=== PATIENT | male | born 1995 | race African-American/Black ===

== ENCOUNTER 2023-10-11 07:16 | Emergency (ER) | payer BC, SELFPAY ==
--- NOTE | ~2023-10-11 | XR_ITS ---
EXAMINATION: XR chest 1V portable 10/11/2023 07:43 INDICATION: Shortness of breath and chest pain PROCEDURE: AP portable chest COMPARISON: No prior studies for comparison. FINDINGS: The lungs are clear. The cardiomediastinal silhouette is within normal limits. There are no pleural effusions. There is no pneumothorax suspected. IMPRESSION: 1: NO ACUTE CARDIOPULMONARY DISEASE. Reviewed, dictated and finalized at location [facility]. [facility] [employer]
[2023-10-11 07:19] VITALS: BP 154/91; PULSE 92; RESP 16; TEMP 37; O2SAT 100
--- NOTE | 2023-10-11 07:34 | ED.GENADULT ---
HPI - General Adult General Chief complaint: Unspecified Stated complaint: has flu reports condition has worsened Time Seen by Provider: 10/11/23 07:19 History of Present Illness HPI narrative: 28-year-old male presented to the emergency department for evaluation body aches. Patient states he was diagnosed with flu yesterday [facility]. Patient was prescribed Tamiflu family states that her C did not have it in stock. Patient did not take any Tylenol or ibuprofen for pain control. Upon arrival to emergency department patient states he does have some chest pain shortness of breath and body aches. Related Data Allergies Allergy/AdvReac Type Severity Reaction Status Date / Time Penicillins Allergy Unknown Verified 10/11/23 08:07 Review of Systems Review of Systems: All systems reviewed & are unremarkable except as noted in HPI and below Exam Narrative: APPEARANCE: Well appearing, no pain, no distress, well-nourished. HEAD: normocephalic, atraumatic. EYES: PERRLA/EOMI, conjunctivae clear. NOSE: Normal no drainage EARS:TMS clear with good light reflex. THROAT: Pharynx clear, no exudate. NECK: Supple. No adenopathy, no masses. RESPIRATORY: Airway patent, respirations nonlabored. Clear to auscultation bilaterally, no rales, rhonchi, wheezing. CARDIOVASCULAR: Regular rate and rhythm without murmurs rubs or gallops. ABDOMINAL: Soft, nontender, nondistended, normal bowel sounds MUSCULOSKELETAL: Moves all extremities. Strength/ROM intact, No edema, No calf tenderness. NEURO: Alert. Cranial nerves II through XII intact. Grossly intact SKIN: Warm, dry. Normal Color Course Course Emergency Course: 28-year-old male presenting ED for evaluation of body aches chest pain and shortness of breath. Patient did feel improved with treatment. Patient and family are updated on the results of the workup and patient was comfortable with the plan for discharge and close follow-up. Vital Signs Vital signs: Vital Signs Temperature 98.6 F 10/11/23 07:19 Pulse Rate 92 10/11/23 07:19 Respiratory Rate 16 10/11/23 07:19 Blood Pressure 154/91 H 10/11/23 07:19 Pulse Oximetry 100 10/11/23 07:19 Oxygen Delivery Room Air 10/11/23 07:19 Temperature 98.6 F 10/11/23 07:19 Pulse Rate 90 10/11/23 09:13 Respiratory Rate 16 10/11/23 09:13 Blood Pressure 142/82 H 10/11/23 09:13 Pulse Oximetry 100 10/11/23 09:13 Oxygen Delivery Room Air 10/11/23 07:19 Medical Decision Making Vital Signs Vital Signs: Vital Signs Temperature 98.6 F 10/11/23 07:19 Pulse Rate 92 10/11/23 07:19 Respiratory Rate 16 10/11/23 07:19 Blood Pressure 154/91 H 10/11/23 07:19 Pulse Oximetry 100 10/11/23 07:19 Oxygen Delivery Room Air 10/11/23 07:19 Temperature 98.6 F 10/11/23 07:19 Pulse Rate 90 10/11/23 09:13 Respiratory Rate 16 10/11/23 09:13 Blood Pressure 142/82 H 10/11/23 09:13 Pulse Oximetry 100 10/11/23 09:13 Oxygen Delivery Room Air 10/11/23 07:19 Imaging Data Radiologist's impression: Impressions Chest X-Ray 10/11/23 07:51 IMPRESSION: 1: NO ACUTE CARDIOPULMONARY DISEASE. ECG Data EKG #1: EKG Interpretation: normal rate, sinus rhythm, normal QRS, normal QT and NL axis Discharge Plan Discharge Clinical Impression: Influenza Patient Disposition: Home, Self-Care Condition: Stable Instructions: Antibiotic Form, Viral Syndrome (ED) Additional Instructions: Tamiflu as directed. Tylenol and ibuprofen for body aches. Drink plenty of fluids. Have close follow-up with your primary care physician. If you have any worsening symptoms then please call or return to the emergency department. Follow-up/Referrals: Erlinda,MD Hortencia [Non-Staff] -
--- NOTE | 2023-10-11 07:36 | ECG_ITS ---
Measurements Intervals [place] Rate: 90 P: 70 WI: 136 QRS: 83 QRSD: 93 T: 53 QT: 311 QTc: 381 Interpretive Statements SINUS RHYTHM NORMAL ELECTROCARDIOGRAM NO PREVIOUS ECG AVAILABLE FOR COMPARISON Electronically Signed On 10-11-2023 9:09:08 WINDOWS ADMIN by Vic Roe M.D.
[2023-10-11] MEDS: ACETAMINOPHEN 500 MG TABLET 1000 MG PO (07:58)
[2023-10-11] MEDS: KETOROLAC 30 MG/ML VIAL (*BKC) IM (07:59)
[2023-10-11 09:13] VITALS: BP 142/82; PULSE 90; RESP 16; O2SAT 100
== END 2023-10-11 09:15 | disposition home or self-care (01) ==
PROVIDERS: Emergency Provider Emergency Medicine
DX: J11.1 Influenza due to unidentified influenza virus with other respiratory manifestations (principal)
CPT/HCPCS: 71045; 93005; 96372; 99283; A9270; J1885